=== PATIENT | male | born 1990 | race Two or more races ===

== ENCOUNTER 2017-03-01 10:13 | Emergency (ER) | payer OTHER ==
[2017-03-01] MEDS ORDERED: LORAZEPAM 2 MG/ML SOL IM PRN (10:52)
[2017-03-01] MEDS ORDERED: DIPHENHYDRAMINE 25 MG CAP PO ONE (10:53)
[2017-03-01 11:46] VITALS: BP 137/102; PULSE 120; TEMP 97.6; O2SAT 97
[2017-03-02] MEDS ORDERED: LORATADINE 10 MG TAB PO SCH (09:00)
== END 2017-03-01 11:10 | disposition left against medical advice (07) | DRG 880 ==
LOC: ED 10:13
DX: F41.9 Anxiety disorder, unspecified (principal); L28.0 Lichen simplex chronicus
CPT/HCPCS: 99282

== ENCOUNTER 2019-01-22 20:35 | Emergency (ER) | payer BC, OTHER ==
[2019-01-22 20:36] VITALS: O2SAT 97
[2019-01-22 21:05] VITALS: PULSE 69; RESP 20; TEMP 96.5
[2019-01-22] MEDS ORDERED: LIDOCAINE 1% W/EPI MPF 30 ML SOL INFIL ONE (21:21)
[2019-01-22] MEDS ORDERED: LIDOCAINE 1% W/EPI MPF 30 ML SOL ONE (21:22)
[2019-01-22] MEDS ORDERED: BACITRACIN 500 U/GM OIN TOP ONE ×2 (21:35→21:36)
[2019-01-22] MEDS ORDERED: SULFAMETHOXAZOLE/TRIMETHOPRI 800/160 MG PO ONE (21:37)
[2019-01-22] MEDS ORDERED: SULFAMETHOXAZOLE/TRIMETHOPRI 800/160 MG ONE (21:44)
[2019-01-22 22:07] VITALS: BP 131/82
== END 2019-01-22 22:00 | disposition home or self-care (01) | DRG 603 ==
LOC: ED 20:35
DX: L02.31 Cutaneous abscess of buttock (principal); B95.2 Enterococcus as the cause of diseases classified elsewhere; B96.89 Other specified bacterial agents as the cause of diseases classified elsewhere
CPT/HCPCS: 45005; 87070; 87186; 99283; A6402; A9270-GY